=== PATIENT | female | born 1965 | race Caucasian/White ===

== ENCOUNTER 2018-03-25 20:08 | Emergency (ER) | payer SELFPAY, BC | END 2018-03-25 23:48 | disposition left against medical advice (07) | LOC: E/R 20:08 | DX: Z53.21 Procedure and treatment not carried out due to patient leaving prior to being seen by health care provider (principal) ==

== ENCOUNTER 2018-06-30 20:12 | Emergency (ER) | payer BC ==
[2018-06-30] MEDS: DIPHENHYDRAMINE 50 MG INJ IV (22:27)
[2018-06-30] MEDS: KETOROLAC 30 MG INJ IV (22:28)
[2018-06-30] MEDS: PROCHLORPERAZINE 10 MG INJ IV (22:28)
[2018-06-30] MEDS: SOD CHLORIDE 0.9% 1,000 ML IV (22:29)
[2018-06-30 22:32] LABS: ADD MAN DIFF? NO
[2018-06-30 22:35] LABS: BASOPHILS % 0.5 % (0.0-2.0); EOSINOPHILS # 0.2 10^3/ul (0.0-0.5); EOSINOPHILS % 3.1 % (0.0-7.0); HEMATOCRIT 40.9 % (37.0-47.0); HEMOGLOBIN 13.5 g/dl (12.0-16.0); LYMPHOCYTES # 2.4 10^3/ul (0.8-2.9); LYMPHOCYTES % 41.8 % (15.0-51.0); MEAN CORPUSCULAR HEMOGLOBIN 29.6 pg (29.0-33.0); MEAN CORPUSCULAR VOLUME 89.7 fl (82.0-101.0); MEAN PLATELET VOLUME 10.2 fl (7.4-10.4); MONOCYTE # 0.4 10^3/ul (0.3-0.9); MONOCYTES % 6.6 % (0.0-11.0); NEUTROPHIL # 2.8 10^3/ul (1.6-7.5); NEUTROPHILS % 47.8 % (39.0-77.0); PLATELET COUNT 188 10^3/UL (140-415); RED BLOOD COUNT 4.56 10^6/ul (4.20-5.40); RED CELL DISTRIBUTION WIDTH 12.6 % (11.5-14.5)
[2018-06-30 22:35] LABS: WHITE BLOOD COUNT 5.8 10^3/ul (4.8-10.8)
[2018-06-30 22:44] LABS: URINE BLOOD (Dip) POC Negative (NEGATIVE); URINE GLUCOSE (Dip) POC Negative (NEGATIVE); URINE KETONES (Dip) POC Negative (NEGATIVE); URINE LEUKOCYTE EST (Dip) POC Trace (NEGATIVE); URINE NITRITE (Dip) POC Negative (NEGATIVE); URINE TOTAL PROTEIN POC Trace (NEGATIVE)
[2018-06-30 22:55] LABS: ANION GAP 9 (8-16); BLOOD UREA NITROGEN 19 mg/dl (7-20); CALCIUM 9.1 mg/dl (8.4-10.2); CARBON DIOXIDE 31 mmol/L (21-31); CHLORIDE 106 mmol/L (97-110); CREATININE 0.64 mg/dl (0.44-1.00); GLUCOSE 97 mg/dl (70-220); POTASSIUM 4.1 mmol/L (3.5-5.1); SODIUM 142 mmol/L (135-144)
[2018-06-30 23:06] LABS: TROPONIN-I < 0.010 ng/ml (0.000-0.120)
== END 2018-07-01 00:02 | disposition home or self-care (01) ==
LOC: E/R 07-01 00:02
DX: F43.9 Reaction to severe stress, unspecified (principal); R51 Headache
CPT/HCPCS: 36415; 71045; 80048; 81003; 84484; 85025; 93005; 96374; 96375; 99285-25

== ENCOUNTER 2018-10-13 01:10 | Emergency (ER) | payer BC | END 2018-10-13 01:25 | disposition home or self-care (01) | LOC: FTE 01:10 | DX: J20.9 Acute bronchitis, unspecified (principal) | CPT/HCPCS: 99283; Z7502 ==

== ENCOUNTER 2019-05-23 21:45 | Emergency (ER) | payer BC ==
[2019-05-24] MEDS: DEXAMETHASONE 10 MG/ML 1 ML INJ IM (00:21)
[2019-05-24] MEDS: HYDROCODONE/APAP (10/325) TAB PO (00:21)
== END 2019-05-24 01:06 | disposition home or self-care (01) ==
LOC: FTE 05-24 01:06
DX: G44.001 Cluster headache syndrome, unspecified, intractable (principal)
CPT/HCPCS: 96372; 99284-25